=== PATIENT | male | born 1965 | race Caucasian/White ===

== ENCOUNTER 2024-03-04 11:56 | Outpatient (CLI) | payer BC ==
[~2024-03-04 11:56] MED LIST: Iopamidol-M 200 41% 20 ML VIAL ONE
[2024-03-04] MEDS ORDERED: Sodium Bicarbonate 2.5 MEQ/5 ML SDV ONE (12:17)
[2024-03-04] MEDS ORDERED: Lidocaine 1% PF 5 ML VIAL ONE (12:17)
[2024-03-04 12:25] VITALS: BP 129/83; TEMP 98.6
== END 2024-03-04 14:20 | disposition home or self-care (01) ==
LOC: CSHRAD 11:56
PROVIDERS: ATTEND Nurse Practitioner Family
DX: M48.062 Spinal stenosis, lumbar region with neurogenic claudication (principal); Z98.1 Arthrodesis status; M43.16 Spondylolisthesis, lumbar region; M51.36 Other intervertebral disc degeneration, lumbar region
CPT/HCPCS: 62284; 72131; 77003; Q9966